=== PATIENT | male | born 1995 | race Two or more races ===

== ENCOUNTER 2017-11-02 12:15 | Emergency (ER) | payer MEDICAID ==
[~2017-11-02] VITALS: Ht 180.3 cm; Wt 80.7 kg
[2017-11-02] MEDS ORDERED: ACETAMINOPHEN 500 MG TAB PO ONE ×2 (12:23→12:30)
[2017-11-02 12:26] VITALS: BP 140/77
[2017-11-02] MEDS ORDERED: cefTRIAXone SOD 1,000 MG VL IM ONE (13:00)
== END 2017-11-02 13:52 | disposition home or self-care (01) ==
LOC: ER 12:15
DX: J02.9 Acute pharyngitis, unspecified (principal); K12.1 Other forms of stomatitis; F12.10 Cannabis abuse, uncomplicated
CPT/HCPCS: 71046; 96372; 99284; J0696